=== PATIENT | male | born 1990 | race Caucasian/White ===

== ENCOUNTER 2018-04-11 23:03 | Emergency (ER) | payer BC, SELFPAY ==
[2018-04-12] MEDS ORDERED: NA CHLORIDE 0.9% 1,000 ML ONE (00:06)
[2018-04-12 00:37] LABS: Absolute Lymphocytes (CBC) 3.5 K/uL (0.7-4.9); Absolute Monocytes 0.8 K/uL (0.1-1.3); Absolute Neutrophil 7.8 K/uL (1.8-8.0); Basophils % 0.6 % (0-1.3); Eosinophils % 1.9 % (0-4.4); Hematocrit 44.6 % (39.6-49.0); Lymphocytes % 28.5 % (15.3-44.8); MCH 28.7 pg (27.0-35.0); MCV 84.2 fL (80-100); Monocytes % 6.5 % (3.3-12.3)
[2018-04-12 00:43] LABS: Barbiturates NEGATIVE (NEGATIVE); Benzodiazepines NEGATIVE (NEGATIVE); Cocaine NEGATIVE (NEGATIVE); METHAMPHETAM NEGATIVE (NEGATIVE); Methadone NEGATIVE (NEGATIVE); Opiates NEGATIVE (NEGATIVE); Phencyclidine NEGATIVE (NEGATIVE); THC Cannibis NEGATIVE (NEGATIVE)
[2018-04-12 00:49] LABS: ALT/SGPT 50 U/L (12-78); AST/SGOT 31 U/L (15-37); Alkaline Phosphatase 55 U/L (45-117); BUN Blood Urea Nitrogen 15 mg/dL (7-18); Bicarbonate 30 mmol/L (21-32); Bilirubin Direct < 0.1 mg/dL (0-0.2); Bilirubin Total 0.2 mg/dL (0.2-1.0); Glucose Level 90 mg/dL (74-106); Magnesium 2.2 mg/dL (1.8-2.4); Potassium 3.8 mmol/L (3.5-5.1); Protein, Total 7.8 g/dL (6.4-8.2); Sodium Level 140 mmol/L (136-145); Troponin (Emerg Dept Use Only) < 0.02 ng/mL (0.0-0.045)
--- NOTE | 2018-04-12 01:11 | ER ---
Nurse's Notes [facility] Name: Antonino Adams Age: 27 yrs Sex: Male : 1990 Arrival Date: 04/11/2018 Time: 23:06 Bed 16 Private MD: Diagnosis: Palpitations Presentation: 04/11 23:25 Presenting complaint: Patient states: Feels like heart is racing, anxious, hands feel lp1 clammy; Patient states taking pre-workout prior to gym tonight at 1800, began feeling heart racing at 2000; Denies any chest pain, shortness of breath, N/V. Transition of care: patient was not received from another setting of care. Onset of symptoms was April 11, 2018 at 20:00. Risk Assessment: Do you want to hurt yourself or someone else? Patient reports no desire to harm self or others. Initial Sepsis Screen: Does the patient meet any 2 criteria? No. Patient's initial sepsis screen is negative. Does the patient have a suspected source of infection? No. Patient's initial sepsis screen is negative. Care prior to arrival: None. 23:25 Method Of Arrival: Ambulatory lp1 23:25 Acuity: KARLEE 3 lp1 Historical: - Allergies: 23:27 No Known Allergies; lp1 - Home Meds: 23:27 None [Active]; lp1 - PMHx: 23:27 None; lp1 - PSHx: 23:27 None; lp1 - Immunization history:: Adult Immunizations up to date. - Social history:: Smoking status: Patient uses tobacco products, smokes one-half pack cigarettes per day. - Ebola Screening: : No symptoms or risks identified at this time. Screenin:28 Abuse screen: Denies threats or abuse. Denies injuries from another. Nutritional lp1 screening: No deficits noted. Tuberculosis screening: No symptoms or risk factors identified. Fall Risk None identified. Assessment: 23:45 General: Appears in no apparent distress. comfortable, Behavior is calm, cooperative, aa1 appropriate for age. Pain: Denies pain. Neuro: Level of Consciousness is awake, alert, obeys commands, Oriented to person, place, time, situation, Moves all extremities. Full function Gait is steady. Cardiovascular: Reports palpitations, Denies chest pain, diaphoresis, nausea, shortness of breath, Heart tones S1 S2 present Capillary refill < 3 seconds Patient's skin is warm and dry. Rhythm is regular. Respiratory: Airway is patent Respiratory effort is even, unlabored, Respiratory pattern is regular, symmetrical. GI: No signs and/or symptoms were reported involving the gastrointestinal system. : No signs and/or symptoms were reported regarding the genitourinary system. EENT: No signs and/or symptoms were reported regarding the EENT system. Derm: Skin is intact, is healthy with good turgor, Skin is pink, warm \T\ dry. Musculoskeletal: Circulation, motion, and sensation intact. Capillary refill < 3 seconds. 04/12 00:45 Reassessment: Patient appears in no apparent distress at this time. Patient and/or aa1 family updated on plan of care and expected duration. Pain level reassessed. Patient is alert, oriented x 3, equal unlabored respirations, skin warm/dry/pink. Awaiting lab results Patient denies pain at this time. 01:38 Reassessment: Patient appears in no apparent distress at this time. Patient is alert, aa1 oriented x 3, equal unlabored respirations, skin warm/dry/pink. Discussed d/c \T\ f/u instructions with pt \T\ significant other; denies questions or concerns at this time Patient states feeling better. Vital Signs: 04/11 23:27 BP 138 / 82; Pulse 110; Resp 20; Temp 98.3(O); Pulse Ox 99% on R/A; Weight 142.88 kg; lp1 Height 6 ft. 0 in. (182.88 cm); Pain 0/10; 04/12 00:32 BP 124 / 72; Pulse 107; Resp 20; Pulse Ox 99% on R/A; Pain 0/10; aa1 01:38 BP 118 / 65; Pulse 101; Resp 18; Pulse Ox 99% on R/A; Pain 0/10; aa1 04/11 23:27 Body Mass Index 42.72 (142.88 kg, 182.88 cm) lp1 ED Course: 04/11 23:06 Patient arrived in ED. do 23:24 Yonis Larson NP is PHCP. pm1 23:24 Oziel Geronimo MD is Attending Physician. pm1 23:27 Triage completed. lp1 23:27 Arm band placed on. lp1 23:27 Patient has correct armband on for positive identification. [employer] on. Pulse lp1 ox on. NIBP on. 23:55 Rupali Lynch, RN is Primary Nurse. aa1 04/12 00:05 EKG done, by ED staff, reviewed by Oziel Geronimo MD. aa1 00:08 Initial lab(s) drawn, by me, sent to lab. Urine collected: clean catch specimen, aa1 cloudy. Inserted saline lock: 20 gauge in left antecubital area, using aseptic technique. Blood collected. 00:16 X-ray completed. Portable x-ray completed in exam room. Patient tolerated procedure kw well. 00:23 XRAY Chest (1 view) In Process Unspecified. EDMS 01:38 No provider procedures requiring assistance completed. IV discontinued, intact, aa1 bleeding controlled, No redness/swelling at site. Pressure dressing applied. Administered Medications: 00:08 Drug: NS 0.9% 1000 ml Route: IV; Rate: 1000 ml; Site: left antecubital; aa1 01:38 Follow up: IV Status: Completed infusion aa1 Outcome: 01:10 Discharge ordered by . pm1 01:38 Discharged to home ambulatory, with significant other. aa1 01:38 Condition: good 01:38 Discharge instructions given to patient, significant other, Instructed on discharge instructions, follow up and referral plans. medication usage, Demonstrated understanding of instructions, follow-up care, medications. 01:40 Patient left the ED. aa1 Signatures: Dispatcher [employer] EDNJ Rupali Lynch, RN RN aa1 Kaylynn Lazaro Laura, RN RN lp1 Krystal Gregg Patrick, NP CLEAN ROOM OPERATOR pm1
--- NOTE | 2018-04-12 01:11 | EDPHYS ---
Physician Documentation [facility] Name: Antonino Adams Age: 27 yrs Sex: Male : 1990 Arrival Date: 04/11/2018 Time: 23:06 Bed 16 Private MD: ED Physician Oziel Geronimo HPI: 04/12 01:06 This 27 yrs old Male presents to ER via Ambulatory with complaints of "Heart pm1 Racing". 01:06 The patient presents with a history of irregular heart beat, heart racing. Context: The pm1 symptoms occur Weight lifting and use of pre-workout drink. Onset: The symptoms/episode began/occurred today. Duration: The patient or guardian reports multiple episodes, that are intermittent. Modifying factors: The symptoms are aggravated by supplements for exercising The symptoms are alleviated by nothing. Associated signs and symptoms: Pertinent positives: anxiety, Pertinent negatives: chest pain, cough, fever, nausea, SOB, vomiting. The patient has not recently seen a physician. Historical: - Allergies: 04/11 23:27 No Known Allergies; lp1 - Home Meds: 23:27 None [Active]; lp1 - PMHx: 23:27 None; lp1 - PSHx: 23:27 None; lp1 - Immunization history:: Adult Immunizations up to date. - Social history:: Smoking status: Patient uses tobacco products, smokes one-half pack cigarettes per day. - Ebola Screening: : No symptoms or risks identified at this time. ROS: 04/12 01:06 Constitutional: Negative for fever, chills, and weight loss, Eyes: Negative for injury, pm1 pain, redness, and discharge, ENT: Negative for injury, pain, and discharge, Neck: Negative for injury, pain, and swelling. Respiratory: Negative for shortness of breath, cough, wheezing, and pleuritic chest pain, Abdomen/GI: Negative for abdominal pain, nausea, vomiting, diarrhea, and constipation, Back: Negative for injury and pain, : Negative for injury, bleeding, discharge, and swelling, MS/Extremity: Negative for injury and deformity, Skin: Negative for injury, rash, and discoloration, Neuro: Negative for headache, weakness, numbness, tingling, and seizure. Cardiovascular: Positive for palpitations, Negative for chest pain, edema, orthopnea. Exam: 01:06 Constitutional: This is a well developed, well nourished patient who is awake, alert, pm1 and in no acute distress. Head/Face: Normocephalic, atraumatic. Eyes: Pupils equal round and reactive to light, extra-ocular motions intact. Lids and lashes normal. Conjunctiva and sclera are non-icteric and not injected. Cornea within normal limits. Periorbital areas with no swelling, redness, or edema. ENT: Nares patent. No nasal discharge, no septal abnormalities noted. Tympanic membranes are normal and external auditory canals are clear. Oropharynx with no redness, swelling, or masses, exudates, or evidence of obstruction, uvula midline. Mucous membranes moist. Neck: Trachea midline, no thyromegaly or masses palpated, and no cervical lymphadenopathy. Supple, full range of motion without nuchal rigidity, or vertebral point tenderness. No Meningismus. Chest/axilla: Normal chest wall appearance and motion. Nontender with no deformity. No lesions are appreciated. Respiratory: Lungs have equal breath sounds bilaterally, clear to auscultation and percussion. No rales, rhonchi or wheezes noted. No increased work of breathing, no retractions or nasal flaring. Abdomen/GI: Soft, non-tender, with normal bowel sounds. No distension or tympany. No guarding or rebound. No evidence of tenderness throughout. 01:06 Back: No spinal tenderness. No costovertebral tenderness. Full range of motion. Skin: Warm, dry with normal turgor. Normal color with no rashes, no lesions, and no evidence of cellulitis. MS/ Extremity: Pulses equal, no cyanosis. Neurovascular intact. Full, normal range of motion. 01:06 Cardiovascular: Rate: tachycardic, actual rate is 107 bpm, Rhythm: regular, Pulses: no pulse deficits are appreciated, Heart sounds: normal, Edema: is not appreciated. 01:06 Neuro: Orientation: is normal, Motor: is normal, moves all fours. Vital Signs: 04/11 23:27 BP 138 / 82; Pulse 110; Resp 20; Temp 98.3(O); Pulse Ox 99% on R/A; Weight 142.88 kg; lp1 Height 6 ft. 0 in. (182.88 cm); Pain 0/10; 04/12 00:32 BP 124 / 72; Pulse 107; Resp 20; Pulse Ox 99% on R/A; Pain 0/10; aa1 01:38 BP 118 / 65; Pulse 101; Resp 18; Pulse Ox 99% on R/A; Pain 0/10; aa1 04/11 23:27 Body Mass Index 42.72 (142.88 kg, 182.88 cm) lp1 MDM: 04/11 23:29 Patient medically screened. pm1 04/12 01:10 Data reviewed: vital signs. Data interpreted: Pulse oximetry: on room air is 99 %. pm1 Interpretation: normal. Counseling: I had a detailed discussion with the patient and/or guardian regarding: the historical points, exam findings, and any diagnostic results supporting the discharge/admit diagnosis, lab results, radiology results, the need for outpatient follow up, to return to the emergency department if symptoms worsen or persist or if there are any questions or concerns that arise at home. 04/11 23:43 Order name: Basic Metabolic Panel; Complete Time: 00:52 pm1 04/11 23:43 Order name: CBC with Diff; Complete Time: 01:05 pm1 04/11 23:43 Order name: LFT's; Complete Time: 00:52 pm1 04/11 23:43 Order name: Magnesium; Complete Time: 00:52 pm1 04/11 23:43 Order name: Troponin (emerg Dept Use Only); Complete Time: 00:52 pm1 04/11 23:43 Order name: UDS; Complete Time: 00:52 pm1 04/11 23:43 Order name: XRAY Chest (1 view) pm1 04/11 23:43 Order name: EKG; Complete Time: 23:44 pm1 04/11 23:43 Order name: Cardiac monitoring; Complete Time: 00:31 pm1 04/11 23:43 Order name: EKG - Nurse/Tech; Complete Time: 00:31 pm1 04/11 23:43 Order name: IV Saline Lock; Complete Time: 00: pm04/11 23:43 Order name: Labs collected and sent; Complete Time: 00:31 pm1 04/11 23:43 Order name: O2 Per Protocol; Complete Time: 00:31 pm1 04/11 23:43 Order name: O2 Sat Monitoring; Complete Time: 00: pm1 Administered Medications: 00:08 Drug: NS 0.9% 1000 ml Route: IV; Rate: 1000 ml; Site: left antecubital; aa1 01:38 Follow up: IV Status: Completed infusion aa1 Disposition: 04/12/18 01:10 Discharged to Home. Impression: Palpitations. - Condition is Stable. - Discharge Instructions: Palpitations. - Medication Reconciliation Form, Thank You Letter form. - Follow up: Emergency Department; When: As needed; Reason: Worsening of condition. Follow up: Private Physician; When: 2 - 3 days; Reason: Recheck today's complaints, Continuance of care, Re-evaluation by your physician. - Problem is new. - Symptoms have improved. Addendum: 04/15/2018 04:02 Co-signature as Attending Physician, Oziel Geronimo MD. g s Signatures: Dispatcher [employer] EDMS Rupali Lynch, RN RN aa1 Leelee Pisano RN RN lp1 Yonis Larson, ROCK ROOM WORKER ROCK ROOM WORKER pm1 Oziel Geronimo MD MD Corrections: (The following items were deleted from the chart) 04/12 01:40 01:10 04/12/2018 01:10 Discharged to Home. Impression: Palpitations. Condition is aa1 Stable. Forms are Medication Reconciliation Form, Thank You Letter, Antibiotic Education, Prescription Opioid Use. Follow up: Emergency Department; When: As needed; Reason: Worsening of condition. Follow up: Private Physician; When: 2 - 3 days; Reason: Recheck today's complaints, Continuance of care, Re-evaluation by your physician. Problem is new. Symptoms have improved. pm1
[2018-04-12 05:01] VITALS: TEMP 98.3; O2SAT 99
[2018-04-12 05:03] VITALS: BP 118/65
--- NOTE | 2018-04-12 08:42 | RAD REPORT ---
EXAM DESCRIPTION: Leon Single View04/12/2018 12:16 am CLINICAL HISTORY: Palpitations COMPARISON: none FINDINGS: The lungs appear clear of acute infiltrate. The heart is normal size IMPRESSION: No acute abnormalities displayed
--- NOTE | 2018-04-12 12:10 | EKG ---
Test Date: 2018-04-12 Test Time: 00:03:09 Alley Cleaner: ZAID MEASUREMENT RESULTS: Intervals: Rate: 105 FL: 142 QRSD: 88 QT: 338 QTc: 446 Babb: P: 30 FL: 142 QRS: -15 T: 2 INTERPRETIVE STATEMENTS: Sinus tachycardia Voltage criteria for left ventricular hypertrophy Abnormal ECG Compared to ECG 12/01/2005 01:20:16 Left ventricular hypertrophy now present Sinus rhythm no longer present Electronically Signed On 04-12-18 12:09:07 CONSERVATION WORKER by Adam Vidal
== END 2018-04-12 01:40 | disposition home or self-care (01) ==
LOC: ER 23:03
DX: R00.2 Palpitations (principal); F17.210 Nicotine dependence, cigarettes, uncomplicated
CPT/HCPCS: 36415; 71045; 80048; 80076; 80307; 83735; 84484; 85025; 93005; 96360; 99284; J7030